=== PATIENT | male | born 1965 | race Caucasian/White ===

== ENCOUNTER → 2017-05-24 | Outpatient (CLI) | payer OTHER ==
[~2017-05-24] MED LIST: ASPI-496 PO; LYSI500T PO; MULT-658 PO
== END | disposition home or self-care (01) ==
LOC: STAR 08:19
PROVIDERS: ATTEND Internal Medicine
DX: Z02.9 Encounter for administrative examinations, unspecified (principal)

== ENCOUNTER 2017-05-28 06:45 | Day surgery (SDC) | payer OTHER ==
[~2017-05-28] VITALS: Ht 172.7 cm; Wt 87.4 kg
[2017-05-28] MEDS ORDERED: LACTATED RINGERS 1,000 ML IV SCH (07:21)
[2017-05-28 07:22] VITALS: BP 128/83
[2017-05-28] MEDS ORDERED: EPINEPHRINE SYRINGE 0.1 MG/ML, 10ML ONE (08:12)
[2017-05-28] MEDS ORDERED: INDOCYANINE GREEN 25 MG VIAL ONE (08:13)
[2017-05-28] MEDS ORDERED: PROPOFOL 10 MG/ML, 20ML ONE (08:52)
[2017-05-28] MEDS ORDERED: hydrALAzine 20 MG/ML, 1ML IV PRN (09:30)
[2017-05-28] MEDS ORDERED: ALBUTEROL SULFATE 2.5 MG/3 ML NPPB PRN (09:30)
[2017-05-28] MEDS ORDERED: MEPERIDINE/PF 25MG/0.5ML IVPush PRN (09:30)
[2017-05-28] MEDS ORDERED: EPHEDRINE 50 MG/ML, 1ML IVPush PRN (09:30)
[2017-05-28] MEDS ORDERED: LABETALOL 5MG/ML, 20ML IV PRN (09:30)
[2017-05-28] MEDS ORDERED: HYDROmorphone 1 MG/ML, 1ML IV PRN (09:30)
[2017-05-28] MEDS ORDERED: FENTANYL PF 100 MCG/2ML IV PRN (09:30)
[2017-05-28] MEDS ORDERED: MIDAZOLAM 1 MG/ML, 2ML IV PRN (09:30)
[2017-05-28] MEDS ORDERED: METOCLOPRAMIDE 5 MG/ML, 2ML IV PRN (09:30)
[2017-05-28] MEDS ORDERED: ONDANSETRON 2MG/ML, 2ML IVPush PRN (09:30)
== END 2017-05-28 11:00 ==
LOC: OUT 06:45
PROVIDERS: ATTEND Internal Medicine
DX: K63.89 Other specified diseases of intestine (principal); K62.89 Other specified diseases of anus and rectum
CPT/HCPCS: 45331; 45341; 88305; J2704; J7120